=== PATIENT | female | born 1985 | race Caucasian/White ===

== ENCOUNTER 2022-11-19 21:23 | Emergency (ER) | payer OTHER ==
[~2022-11-19] VITALS: Ht 182.8 cm; Wt 158.8 kg
[2022-11-19 22:14] VITALS: BP 114/83
[2022-11-19] MEDS ORDERED: EPIPEN 2-P0.3 MG/0.3 IJ (22:42)
[2022-11-19] MEDS ORDERED: PREDNISONE20 M1 PO (22:42)
== END 2022-11-19 22:44 | disposition home or self-care (01) ==
LOC: ED 21:23
DX: T78.40XA Allergy, unspecified, initial encounter (principal); Z90.89 Acquired absence of other organs; Y92.89 Other specified places as the place of occurrence of the external cause

== ENCOUNTER 2023-04-17 20:38 | Emergency (ER) | payer OTHER ==
[~2023-04-17] VITALS: Ht 182.9 cm; Wt 147.4 kg
[~2023-04-17 20:38] MED LIST: EPIPEN 2-P0.3 MG/0.3 IJ; PREDNISONE20 M1 PO
[2023-04-17 21:40] VITALS: BP 156/72
== END 2023-04-17 23:54 | disposition home or self-care (01) ==
LOC: ED 20:38
DX: M77.32 Calcaneal spur, left foot (principal); E78.00 Pure hypercholesterolemia, unspecified; K21.9 Gastro-esophageal reflux disease without esophagitis; Z98.890 Other specified postprocedural states; Z90.89 Acquired absence of other organs